=== PATIENT | male | born 1940 | race Caucasian/White ===

== ENCOUNTER 2018-11-08 08:15 | Day surgery (SDC) | payer MEDICARE, BC ==
[2018-11-06 14:46] LABS: HEMATOCRIT 43.9 % (42.0-54.0); HEMOGLOBIN 14.6 g/dL (13.5-17.5); MCH 31.5 pg (26.0-34.0); MCHC 33.3 g/dL (31.0-37.0); MCV 94.6 fL (80.0-100.0); MEAN PLATELET VOLUME 9.5 fL (7.4-10.4); RBC 4.64 10x6/uL (4.20-6.10); RDW 13.2 % (11.5-14.5); WBC 10.9 10x3/uL (4.8-10.8)
[~2018-11-08] VITALS: Ht 175.3 cm; Wt 112.5 kg
[~2018-11-08 08:15] MED LIST: BAYER CHEWABLE81 MG PO; COREG6.25 MG PO; ELIQUIS5 MG PO; FUROSEMIDE40 MG PO; ISOSORBIDE MONO30 M1 PO; LISINOPRIL2.5 MG PO; PROTONIX40 MG PO; TYLENOL W/CODEI1 TAB PO; ZYLOPRIM100 MG PO; [UNRECOGNIZED DRUG - OTHER] TL
[2018-11-08 09:32] VITALS: BP 105/50; Ht 175.3 cm; Wt 112.5 kg
--- NOTE | 2018-11-08 12:35 | NUR ---
REC'D FROM RR. VERBAL. RELATING FEELS THE URGE TO VOID HOWEVER HAS BEEN TRYING TO VOID IN A URINAL UNSUCCESSFULLY. FAMILY AT BEDSIDE. EATING ICE CHIPS.
--- NOTE | 2018-11-08 13:05 | NUR ---
RONY RUSS SERVED. FAMILY AT BEDSIDE.
--- NOTE | 2018-11-08 13:12 | OP ---
PATIENT NAME: KATHRIN WEATHERS MEDICAL RECORD: [id number] :42 [facility] AD[facility] DATE: SURGEON: SHERI WEEKS MD DATE OF OPERATION: 11/08/2018 SURGEON: Sheri Weeks MD ANESTHESIA: General anesthesia by Ehsan Velasquez CRNA DIAGNOSIS: Phimosis with penile mass lesions. Elevated PSA 6.4 on 06/29/2018. PROCEDURE: 1. Dorsal slit of the penis with penile biopsy. 2. Transrectal ultrasound and prostate biopsies. FINDINGS: Tight phimosis with no extra skin left for circumcision. The skin is hyperkeratotic and irregular. Biopsies of the penile skin were sent. On frozen section, severe chronic inflammation and no cancer was seen. On transrectal ultrasound, 31 mL prostate without prostatic stones or hypoechoic areas within. SPECIMENS: 1. Penile dorsal slit margins with frozen section. Wedge specimens of the left lateral penis and ventral penis for permanent section. 2. Prostate biopsy cores. BLOOD LOSS: Minimal. CLINICAL HISTORY: This is a 78-year-old male, who was referred for the elevated PSA of 6.4 on 06/29/2018. He has obstructive voiding symptoms also. He has previously been circumcised twice and he feels that it was done improperly. He has, to his mind, a lot of redundant foreskin, which is persistent. He cannot withdraw the foreskin back to expose the glans penis. He keeps getting recurrent infections here. He does not have a history of diabetes mellitus. He is not allergic to any medications. He was given Ancef water sponger to the OR. DESCRIPTION OF PROCEDURE: The patient was placed in supine position and given general anesthetic. He was then prepped and draped. The glans penis could not be exposed because of the tight phimosis. I did a dorsal slit on the glans penis by incising along the dorsum with Metzenbaum scissors. The scar tissue of the phimosis is extremely tight. It is also quite hard to cut through. We finally made a dorsal slit long enough that the glans penis could be fully retracted out. I placed a 2-0 nylon suture through the glans penis for traction. The skin around the phimosis is extremely tight, very irregular and adherent to the glans penis. I took samples from the margin of the dorsal slit and sent it to pathology for frozen section. This came back as chronic inflammation only with no cancer seen. I took more sclerotic areas in the left lateral portion of the penis and the ventral surface and sent these for permanent sections. There is no extra skin left to perform a circumcision. The dorsal slit was then reapproximated to itself along the longitudinal axis of the penis. I used simple interrupted 4-0 Vicryl to do this. At the end, we closed the ring of the tight band of phimosis to itself also, so that the closure was in the form of a large T. Xenform dressing was applied. We then placed the patient into dorsal lithotomy position and performed the transrectal ultrasound procedure. Prostate size was measured at 31 mL. No hypoechoic areas were seen. We obtained at least 3 cores from each sextant. Once all the specimens were OPERATIVE REPORT [id number] KATHRIN WEATHERS obtained, the procedure was terminated. I will see the patient next week in followup to review the pathology results with him. TRANSINT:[id number] Voice Confirmation ID: [id number] DOCUMENT ID: [id number] SHERI WEEKS MD at 1312 CC: [id number] DICTATION DATE: 11/08/18 1206 PHYSICAL LABORATORY ASSISTANT: 11/08/18 1310 REG [facility] [address] [place] [address]
--- NOTE | 2018-11-08 13:35 | NUR ---
TOLERATED FL TRAY. NO URGE TO VOID AT THIS TIME.
--- NOTE | 2018-11-08 14:05 | NUR ---
ASSISTED TO BATHROOM.
--- NOTE | 2018-11-08 14:20 | NUR ---
VOIDED. ASSISTED BACK TO BED. IV DC'D WITH CATHETER INTACT.
--- NOTE | 2018-11-08 15:00 | NUR ---
WRITTEN AND VERBAL DC INST. GIVEN TO PT ALONG WITH RX. VERBALIZED UNDERSTANDING.
--- NOTE | 2018-11-08 15:15 | NUR ---
DC'D HOME WITH FAMILY VIA PRIVATE VEHICLE. TAKEN TO VEHICLE VIA WC. STABLE AT TIME OF DC.
== END 2018-11-08 15:15 | disposition home or self-care (01) ==
LOC: D.OPS 08:15 → D.PAN 10:30 → D.OPS 15:15
PROVIDERS: Anesthesiology; ATTEND Urology
DX: C61 Malignant neoplasm of prostate (principal); N47.1 Phimosis; N48.89 Other specified disorders of penis; Z01.812 Encounter for preprocedural laboratory examination

== ENCOUNTER → 2018-12-04 07:55 | Outpatient (CLI) | payer MEDICARE, BC ==
[2018-11-08 09:32] VITALS: BMI 36.7
== END | disposition home or self-care (01) ==
LOC: D.NM 07:55
PROVIDERS: ATTEND Urology
DX: C61 Malignant neoplasm of prostate (principal)

== ENCOUNTER → 2019-02-08 08:38 | Outpatient (CLI) | payer MEDICARE, BC ==
[2018-11-08 09:32] VITALS: BMI 36.7
[~2019-02-08 08:38] MED LIST changes: +BETAPACE 80 MG80 MG PO; +BICALUTAMIDE; +GLUCOPHAGE500 MG PO; +LIPITOR40 MG PO
--- NOTE | 2019-02-15 09:40 | ST ---
PATIENT:KATHRIN WEATHERS MEDICAL RECORD: [id number] SEX: M LOCATION:[facility] ORDER #: ADMISSION DATE: 02/08/19 AGE OF PATIENT: 78 REFERRING PHYSICIAN: INTERPRETING PHYSICIAN: JONELLE ORLANDO MD DATE OF SERVICE: 02/08/2019 Nuclear Stress Test INDICATIONS: Angina and coronary artery disease, ventricular tachycardia. The patient was exercised on standard Lexiscan protocol with 33 mCi of sestamibi injected at peak stress, 11 used previously for rest images. FINDINGS: Gated SPECT reveals markedly depressed ejection fraction at 32% with decreased thickening and brightening throughout the inferior segments. SPECT IMAGING: Cardiolite was used as myocardial perfusion agent. There is a large fixed perfusion defect throughout the inferoapical segments compatible with previous inferoapical myocardial infarction; however, there is reversibility anteriorly, this includes basal, mid, apical, and anterior segments. The degree of reversibility is mild. The amount of myocardium involved between the 2 defects is very large. OVERALL IMPRESSION: This is a markedly abnormal nuclear stress test, fixed perfusion defect inferiorly, reversible ischemia anteriorly suggestive of multivessel coronary artery disease. We will proceed with coronary angiography as a followup study. TRANSINT:[id number] Voice Confirmation ID: [id number] DOCUMENT ID: [id number] JONELLE ORLANDO MD at 0940 CC: ROSE MAYA DO [id number] DICTATION DATE: 02/12/19 1012 PARALLEL COMPUTING SOFTWARE ENGINEER: 02/12/19 2303 DEP CLI 02/08/19 [facility] [address] [place] [address]
== END | disposition home or self-care (01) ==
LOC: D.HCCARDIO 08:38
PROVIDERS: ATTEND Internal Medicine Interventional Cardiology
DX: I25.10 Atherosclerotic heart disease of native coronary artery without angina pectoris (principal)

== ENCOUNTER 2019-03-04 10:52 | Outpatient (CLI) | payer MEDICARE, BC ==
[~2019-03-04] VITALS: Ht 177.8 cm; Wt 93.2 kg
--- NOTE | ~2019-03-04 | HEMODYNAMI ---
PATIENT:KATHRIN WEATHERS MEDICAL RECORD: [id number] : 42 LOCATION:[facility] ADMISSION DATE: 03/04/19 Generatedon:03/04/201914:11 Patient name: KATHRIN WEATHERS Patient #: [id number] SSN: : 1940 Date of study: 03/04/2019 Page: Of Hemodynamic Procedure Report Patient Data Patient Demographics Procedure consent was obtained First Name: KATHRIN Gender: Male Last Name: JASIEL : 1940 [facility] Initial: DENISSE Age: 78 year(s) Patient #: [id number] Race: Unknown Additional ID: [id number] Contact details Address: [address] [place] [address] State: [place] City: [facility] Zip code: [address] Admission Admission Data Admission Date: 03/04/2019 Admission Time: 10:52 Admit Source: Other Height (in.): 69.69 BSA: 2.1 (m2) Height (cm.): 177 BMI: 29.68 (kg/m2) Weight (lbs.): 205.03 Weight (kg.): 93 Lab Results Lab Result Date: 03/04/2019 Lab Result Time: 0:00 Biochemistry Name Units Result Min Max BUN mg/dl 19 --(----)*- 7 18 Creatinine mg/dl 0.9 --(-*--)-- 0.6 1.3 CBC Name Units Result Min Max Hemoglobin g/dl 14.1 --(*---)-- 13.5 17.5 Procedure Procedure Types Cath Procedure Diagnostic Procedure LHC LHC w/Coronaries w/Grafts Procedure Description Procedure Date Procedure Date: 03/04/2019 Procedure Start Time: 13:51 Procedure End Time: 14:06 Procedure Staff Name Function Ba Castaneda MD Performing Physician Sara Kingsley RT Monitor Elijah Gayle RT Scrub Tanisha Nichols RN Nurse Alan Rhodes CRNA Additional personnel Procedure Data Cath Procedure Fluoroscopy Diagnostic fluoroscopy Total fluoroscopy Time: 4.4 time: 4.4 min min Diagnostic fluoroscopy Total fluoroscopy dose: 816 dose: 816 mGy mGy Contrast Material Contrast Material Type Amount (ml) Isovue 300 122 Entry Location Entry Primary Successful Side Size Upsize Upsize Entry Closure Succes sful Closure Location (Fr) 1 (Fr) 2 (Fr) Remarks Device Remarks Femoral Right 5 Fr Exoseal artery Estimated blood loss: 5 ml Diagnostic catheters Device Type Used For End Catheter Placement MULTIPACK JL 4.0 5Fr Left Coronary catheter Angiography DIAGNOSTIC AR1 MOD 5Fr Multi-vessel catheter ([id number]) Angiography DIAGNOSTIC IM 5Fr SVG Angiography catheter ([id number]) MULTIPACK Pigtail 5 Fr LV Angiography catheter Procedure Complications No complications Procedure Medications Medication Administration Route Dosage 0.9% NaCl I.V. 100 ml/hr Oxygen etCO2 Nasal cannula 2 l/min Lidocaine 2% added to field 20 Heparin Flush Bag added to field 2 bags (1000units/500ml NS) Versed I.V. 2 mg Fentanyl I.V. 50 mcg Hemodynamics Rest BSA: 2.1 (m2) HGB: 14.1 (g/dl) O2 Consumption: Estimated: 236.3 (ml/min) O2 Cons umption indexed: Estimated:112.52 (ml/min/m) Heart Rate: 64 (bpm) Pressure Samples Time Site Value (mmHg) Purpose Heart Use Rate(bpm) 14:02 LV 128/4,18 Snapshot 74 14:03 AO 130/61(92) Pullback 71 14:03 LV 126/3,18 Pullback 71 Gradients Valve Time Site 1 Site 2 Mean SEP/DFP Peak To Heart Use (mmHg) (sec/min) Peak Rate (mmHg) (bpm) Aortic 14:03 LV AO 0 16 0 71 126/3,18 130/61(92) Calculations Valve P-P Mean Valve Index Valve Source Name Gradient Area Flow (cm2) Aortic 0 0 0 0 Snapshots Pre Cath Intra NCS Post Cath Vital Signs Time Heart Resp SPO2 etCO2 NIBP (mmHg) Rhythm Pain Sedation Rate (ipm) (%) (mmHg) Status Level (bpm) 13:36:05 67 11 98 38 140/81(123) Paced 0 (11) 10(A) , No pain 13:40:25 61 15 97 38.3 134/71(96) Paced 0 (11) 10(A) , No pain 13:44:49 60 15 99 36.8 133/66(107) Paced 0 (11) 9(A) , No pain 13:49:09 72 11 98 39.7 126/72(89) Paced 0 (11) 9(A) , No pain 13:53:27 65 12 98 37 135/75(119) Paced 0 (11) 9(A) , No pain 13:57:49 71 12 97 42 132/74(95) Paced 0 (11) 9(A) , No pain 14:02:09 73 12 97 26.2 134/76(91) Paced 0 (11) 9(A) , No pain 14:06:32 73 13 97 42 134/74(104) Paced 0 (11) 9(A) , No pain Medications Time Medication Route Dose Verified Delivered Reason Notes Eff ectiveness by by 13:37:03 0.9% NaCl I.V. 100 Ba Tanisha used for ml/hr Leonel Nichols moving picture producer 13:37:09 Oxygen etCO2 2 Ba Tanisha used for Nasal l/min Leonel Nichols procedure cannula RN 13:37:14 Lidocaine 2% added 20ml Ba Ba for local to vial Leonel Castaneda MD anesthetic field 13:37:19 Heparin Flush added 2 Ba Ba used for Bag to bags Leonel Castaneda MD procedure (1000units/500ml field NS) 13:42:13 Versed I.V. 2 mg Ba Tanisha for Leonel Nichols sedation RN 13:42:22 Fentanyl I.V. 50 Ba Tanisha for mcg Leonel Nichols sedation customer service receptionist Log Time Note 13:10:36 Tanisha Nichols RN sent for patient. Start room use. 13:21:37 Time tracking: Regular hours (M-F 7:00 - 5:00) 13:21:42 Plan of Care:Hemodynamics will remain stable., Cardiac rhythm will remain stable., Comfort level will be maintained., Respiratory function will remain adequate., Patient/ family verbilizes understanding of procedure., Procedure tolerated without complication., Recovers from procedure without complications.. 13:24:10 Patient received from Pre/Post Procedure Room to [facility] 1 Alert and oriented. Tansferred to table in Supine position. 13:24:11 Warm blankets applied, and jacqueline hugger turned on for patient comfort. 13:24:16 Correct patient and procedure confirmed by team. 13:24:18 Signed procedure consent form obtained from patient. 13:24:19 ECG and BP/O2 sat monitors applied to patient. 13:25:11 Lab Result : Creatinine 0.9 mg/dl 13:25:11 Lab Result : BUN 19 mg/dl 13:25:11 Lab Result : Hemoglobin 14.1 g/dl 13:25:18 Admit Source: Other 13:25:24 Patient Height : 69.69 inches 13:25:31 Patient Weight : 205.03 lbs 13:34:52 Vital chart was started 13:35:32 Baseline sample Acquired. 13:35:39 Rhythm: sinus rhythm 13:35:41 Full Disclosure recording started 13:35:45 H&P Date Dictated: 03/04/2019 Within 30 days and on chart., H&P Addendum completed by physician on day of procedure. (MUST COMPLETE FOR ALL OUTPATIENTS). 13:35:47 Pre-procedure instructions explained to patient. 13:35:47 Pre-op teaching completed and patient verbalized understanding. 13:35:48 Family in patients room. 13:35:50 Patient NPO since Midnight. 13:35:55 Is the patient allergic to Iodine/contrast media? No. 13:35:56 Was the patient premedicated? No 13:35:57 Is patient on blood thinner?Yes 13:36:01 ACC The patient was administered the following blood thiners within the last 24 hours: Eliquis 13:36:05 Patient diabetic? Yes. 13:36:06 If diabetic: On Metformin? Yes 13:36:13 If on Metformin: Last Dose? 03/03/2019 13:36:17 Previous problem with sedation/anesthesia? No ? 13:36:20 Snore? Yes 13:36:21 Sleep apnea? No 13:36:23 Deviated septum? No 13:36:25 Opens mouth fully? Yes 13:36:26 Sticks out tongue? Yes 13:36:29 Airway obstruction? No ? 13:36:34 Dentures? Yes in toight 13:37:03 0.9% NaCl 100 ml/hr I.V. was administered by Tanisha Nichols RN; used for procedure; 13:37:09 Oxygen 2 l/min etCO2 Nasal cannula was administered by Tanisha Simone RN; used for procedure; 13:37:14 Lidocaine 2% 20ml vial added to field was administered by Ba Castaneda MD; for local anesthetic; 13:37:19 Heparin Flush Bag (1000units/500ml NS) 2 bags added to field was administered by Ba Castaneda MD; used for procedure; 13:41:22 Pre procedure: right dorsailis pedis pulse 2+ Normal; easily identifiable; not easily obliterated 13:41:24 Pre procedure: left dorsailis pedis pulse 2+ Normal; easily identifiable; not easily obliterated 13:41:26 Patient pain scale 0/10 ?. 13:41:33 IV patent on arrival in left forearm with 0.9% NaCl at [facility]. 13:41:35 Lab results completed and on chart. 13:41:39 Right groin area was prepped with chlora-prep and draped in sterile fashion 13:41:40 Alarms reviewed by R. N. 13:41:41 Sharps counted by scrub and verified by R.N. 13:41:42 Physician arrived 13:41:42 --------ALL STOP TIME OUT------ 13:41:43 Final Timeout: patient, procedure, and site verified with staff and physician. All members of the team are in agreement. 13:41:44 Right groin site verified by team. 13:41:48 Maximum allowable Isovue 300 dose 300ml. Physician notified. (300ml for normal creatinines. For patients with creatinine of 1.7 or higher multiply weight(kg) x 5 divided by creatinine.) 13:41:53 Fire Safety Assessment: A--An alcohol-based skin anteseptic being used preoperatively., C--Open oxygen or nitrous oxide is being used., D--An ESU, laser, or fiber-optic light is being used. 13:41:57 Physical assessment completed. ASA score P 2 - A patient with mild systemic disease as per Ba Castaneda MD. 13:42:02 Sedation plan: IV Moderate Sedation Medication:Versed, Fentanyl 13:42:13 Versed 2 mg I.V. was administered by Tanisha Nichols RN; for sedation; 13:42:22 Fentanyl 50 mcg I.V. was administered by Tanisha Nichols RN; for sedation; 13:43:23 Use device set Femoral Dx 13:43:25 ACIST Syringe (56816) opened to sterile field. 13:43:25 Bag Decanter (2002S) opened to sterile field. 13:43:26 Medline Cath Pack ([id number]) opened to sterile field. 13:43:27 ACIST Hand Control (85951) opened to sterile field. 13:43:27 ACIST Manifold (14408) opened to sterile field. 13:43:28 DIAGNOSTIC Multipack 5Fr catheter set ([id number]) opened to sterile field. 13:43:28 Tegaderm 4 x 4 (1626W) opened to sterile field. 13:43:29 SHEATH 5FR Albers (LTD169) opened to sterile field. 13:43:30 EMERALD Guide Wire (665-007) opened to sterile field. 13:51:05 Procedure started. 13:51:09 Local anesthetic to right femoral artery with Lidocaine 2% by Ba Castaneda MD.INITIAL ACCESS ONLY 13:51:23 A 5 Fr sheath was inserted into the Right Femoral artery 13:51:48 Zero performed for pressure channel P1 13:52:02 A MULTIPACK JL 4.0 5Fr catheter was advanced over the wire and used for Left Coronary Angiography. 13:53:51 LCA angiography performed. 13:53:53 Injector settings: Ml/sec: 3, Volume: 6, 13:53:58 Catheter removed. 13:55:16 A DIAGNOSTIC AR1 MOD 5Fr catheter ([id number]) was advanced over the wire and used for Multi-vessel Angiography. 13:55:20 RCA angiography performed. 13:55:30 SVG to Circ angiography performed. 13:56:29 Catheter removed. 13:56:43 A DIAGNOSTIC IM 5Fr catheter ([id number]) was advanced over the wire and used for SVG Angiography. 13:58:53 GLIDE WIRE ANGLE 260cm (UG0655) opened to sterile field. 13:59:14 TORQUE DEVICE PLASTIC .038 ( TD01) opened to sterile field. 14:00:27 glide wire used in cunjunction with ar 1 mod to gain subclavian access 14:00:30 HERRERA angiography performed. 14:00:37 Catheter removed. 14:00:45 A MULTIPACK Pigtail 5 Fr catheter was advanced over the wire and used for LV Angiography. 14:02:19 LV hemodynamics recorded. 14:02:20 LV gram done using EDMONDS 14:02:22 Injector settings: Ml/sec: 5, Volume: 15, 14:02:36 EF : 20 % 14:03:24 Aortic Root visualized 14:03:32 Injector settings: Ml/sec: 15, Volume: 30, 14:04:51 Catheter removed. 14:04:55 EXOSEAL 5Fr (EX500) opened to sterile field. 14:05:11 Sheath removed intact; hemostasis achieved with Exoseal to the Right Femoral artery. 14:05:13 Procedure ended.(Physican Out) 14:05:22 Fluoroscopy time 04.40 minutes. 14:05:27 Fluoroscopy dose: 816 mGy 14:05:27 Flurop Dose total: 816 14:05:42 Contrast amount:Isovue 300 122ml. 14:05:44 Sharps counted by scrub and verified by R.N. 14:05:46 Insertion/operative site no bleeding no hematoma. 14:05:56 Post-op/insertion site Right Femoral artery dressed using a 4 x 4 and Tegaderm. 14:05:59 Post procedure rhythm: unchanged. 14:06:03 Estimated blood loss: 5 ml 14:06:05 Post procedure instruction explained to patient.Patient verbalizes understanding. 14:06:06 Patient needs reinforcement of post procedure teaching. 14:06:20 Procedure type changed to Cath procedure, Diagnostic procedure, LHC, LHC w/Coronaries w/Grafts 14:06:21 Procedure and supply charges have been captured, reviewed, submitted and are correct. 14:06:27 Procedure Complication : No complications 14:06:29 Vital chart was stopped 14:06:30 See physician's report for complete and final results. 14:06:38 Report given to Pre/Post Procedure Room. 14:06:41 Patient transfered to Pre/Post Procedure Room with Stretcher. 14:06:43 Procedure ended. 14:06:43 Full Disclosure recording stopped 14:06:56 End room use (Document Last) Device Usage Item Name Manufacture Quantity Catalog Hospital Part Current Minimal L ot# / Number Charge Number Stock Stock Serial# Code [facility] Acist 1 77331 437425 968167 591555 20 Enernetics (84374) AmpIdea Inc Bag Microtek 1 2001S 511920 97655 710635 5 Decanter Medical Inc. (2001S) Medline Medline 1 [id number] 375049 01672 294337 5 Cath Pack ([id number]) ACIST Hand Acist 1 79035 561228 713615 083597 5 Control Medical (93220) Systems Inc ACIST Acist 1 94039 772520 549369 187163 5 Manifold Medical (79252) Systems Inc DIAGNOSTIC Cardinal 1 [id number] 835897 31958 652789 30 Multipack Health 5Fr catheter set (YG9117) Tegaderm 4 3M 1 1626W 415497 006511 810604 5 x 4 (1626W) SHEATH 5FR Terumo 1 TLG535 176333 664765 925638 5 Albers (TZO495) EMERALD Cardinal 1 502-455 210141 940530 028926 5 Guide Wire Health (502-455) MULTIPACK Cardinal 1 613762 5 JL 4.0 5Fr Health catheter DIAGNOSTIC Cardinal 1 [id number] 107532 470767 312119 15 AR1 MOD 5Fr Health catheter (569729U) DIAGNOSTIC Cardinal 1 [id number] 794549 971481 622570 5 IM 5Fr Health catheter (275801Y) GLIDE WIRE Terumo 1 [id number] 752448 834133 652831 5 ANGLE 260cm (RI2783) TORQUE Hesperus 1 TD01 870776 998443 780935 5 DEVICE Scientific PLASTIC .038 ( TD01) MULTIPACK Cardinal 1 402043 5 Pigtail 5 Health Fr catheter EXOSEAL 5Fr Cardinal 1 EX500 533814 954074 929358 10 (EX500) Health Signature Audit [place] Stage Time Signature Unsigned Intra-Procedure 03/04/2019 Sara Kingsley 2:11:00 PM RT(R) Signatures Monitor : Sara Kingsley RT Signature : Date : Time : [facility] [address] [place] [address]
[~2019-03-04 10:52] MED LIST changes: -BETAPACE 80 MG80 MG PO; -BICALUTAMIDE; -GLUCOPHAGE500 MG PO; -LIPITOR40 MG PO
[2019-03-04] MEDS ORDERED: GLUCOPHAGE500 MG PO (11:13)
[2019-03-04] MEDS ORDERED: BETAPACE 80 MG80 MG PO (11:13)
[2019-03-04] MEDS ORDERED: LIPITOR40 MG PO (11:14)
[2019-03-04] MEDS ORDERED: BICALUTAMIDE (11:15)
[2019-03-04 11:35] VITALS: BP 131/70; Ht 177.8 cm; Wt 93.2 kg
[2019-03-04 11:48] LABS: BASOPHILS 0.3 % (0-2); EOSINOPHILS 2.4 % (0-7); HEMATOCRIT 41.5 % (42.0-54.0); HEMOGLOBIN 14.1 g/dL (13.5-17.5); IMMATURE GRANULOCYTES 0.1 % (0-5); MCH 30.7 pg (26.0-34.0); MCV 90.2 fL (80.0-100.0); MEAN PLATELET VOLUME 9.2 fL (7.4-10.4); MONOCYTES 8.6 % (2-11); NEUTROPHILS 44.6 % (40-80); PLATELET COUNT 194 10x3/uL (130-400); RDW 13.5 % (11.5-14.5); WBC 9.1 10x3/uL (4.8-10.8)
[2019-03-04 12:09] LABS: CALC OSMOLALITY 276 mosm/kg (275-300); CALCIUM 9.5 mg/dL (8.5-10.1); CARBON DIOXIDE 28.2 mmol/L (21.0-32.0); CHLORIDE - SERUM 102 mmol/L (98-107); CREATININE - SERUM 0.9 mg/dL (0.6-1.3); GLUCOSE 121 mg/dL (74-106); POTASSIUM - SERUM 4.3 mmol/L (3.5-5.1); SODIUM 137 mmol/L (136-145); UREA NITROGEN 19 mg/dL (7-18); eGFR NON AFRICAN AMERICAN 87 mL/min (90-120)
[2019-03-04 12:22] LABS: INR 1.1 (0.85-1.17); PROTIME 13.7 SECONDS (11.6-15.0)
--- NOTE | 2019-03-04 14:47 | NUR ---
HOB IS FLAT, DRESSING CDI. PEDAL PULSES PALPABLE. VSS, AT BEDSIDE.
--- NOTE | 2019-03-04 15:20 | NUR ---
DRESSING CDI, PEDAL PULSES PALPABLE. PT DENIES ANY C/O. CALL LIGHT IN REACH.
--- NOTE | 2019-03-04 15:50 | NUR ---
HOB FLAT, DRESSING CDI, PEDAL PULSES PALPABLE. NSR, RATE 60. DENIES ANY C/O CHEST PAIN.
--- NOTE | 2019-03-04 15:59 | NUR ---
HOB ELEVATED 30 DEGREES, SANDWICH AND PO FLUIDS SERVED. DRESSING CDI TO RIGHT GROIN.
--- NOTE | 2019-03-04 17:00 | NUR ---
PT HAS DRESSED FOR DC TO HOME WITH ASSIST. DRESSING CDI TO RIGHT GROIN, PT IS ALERT AND DENIES ANY C/O. PT ESCORTED TO PRIVATE AUTO VIA WC BY NURSE WITH DRIVING HIM HOME.
--- NOTE | 2019-03-04 17:18 | NUR ---
1620 HOB FULLY ELEVATED, DRESSING REMAINS CDI TO RIGHT GROIN, VSS. DC INSTRUCTIONS REVIEWED WITH PT WHO VERBALIZES UNDERSTANDING. IV DC'D WITH CATH INTACT.
--- NOTE | 2019-03-04 17:20 | NUR ---
1645 DRESSING REMAINS CDI, PT DRESSING FOR DC TO HOME.
== END 2019-03-04 17:00 | disposition home or self-care (01) ==
LOC: D.CATH 10:52
PROVIDERS: Internal Medicine Interventional Cardiology; ATTEND Internal Medicine Cardiovascular Disease
DX: I25.119 Atherosclerotic heart disease of native coronary artery with unspecified angina pectoris (principal); Z95.1 Presence of aortocoronary bypass graft; I51.7 Cardiomegaly; Z01.812 Encounter for preprocedural laboratory examination

== ENCOUNTER → 2019-08-07 11:00 | Outpatient (CLI) | payer MEDICARE, BC ==
[2019-03-04 11:35] VITALS: BMI 29.4
[~2019-08-07 11:00] MED LIST changes: +BETAPACE 80 MG80 MG PO; +BICALUTAMIDE; +GLUCOPHAGE500 MG PO; +LIPITOR40 MG PO
== END | disposition home or self-care (01) ==
LOC: D.RAD 11:00
PROVIDERS: ATTEND Urology
DX: R06.02 Shortness of breath (principal)

== ENCOUNTER → 2019-08-26 11:11 | Outpatient (CLI) | payer MEDICARE, BC ==
[2019-03-04 11:35] VITALS: BMI 29.4
== END | disposition home or self-care (01) ==
LOC: D.HCCECHO 11:11
PROVIDERS: ATTEND Internal Medicine Cardiovascular Disease
DX: I25.10 Atherosclerotic heart disease of native coronary artery without angina pectoris (principal)

== ENCOUNTER → 2019-10-25 11:13 | Outpatient (CLI) | payer MEDICARE, BC ==
[2019-03-04 11:35] VITALS: BMI 29.4
== END | disposition home or self-care (01) ==
LOC: D.RAD 11:13
PROVIDERS: ATTEND Family Medicine
DX: J18.9 Pneumonia, unspecified organism (principal)

== ENCOUNTER → 2019-12-13 09:44 | Outpatient (CLI) | payer MEDICARE, BC ==
[2019-03-04 11:35] VITALS: BMI 29.4
== END | disposition home or self-care (01) ==
LOC: D.HCCECHO 09:44
PROVIDERS: ATTEND Internal Medicine Cardiovascular Disease
DX: I25.10 Atherosclerotic heart disease of native coronary artery without angina pectoris (principal)